=== PATIENT | female | born 1965 | race Caucasian/White ===

== ENCOUNTER → 2016-11-21 | Outpatient (CLI) | payer BC ==
--- OUTSIDE RECORDS SUMMARY | 2016-11-21 06:57 | XMS REPORT | Continuity of Care Document ---
Author Author [facility] Organization [facility] Address Unknown Phone Unavailable Allergies Medications Problems Date Dx Coded Attending Type Code Diagnosis Diagnosed By 10/29/2015 Ot Z12.31 11/21/2016 Ot V76.12 OTH SCREEN MAMMO-MALIGN NEOPLASM OF AVERY 11/21/2016 DUNIA SIMPSON, JAMISON Bonilla Ot 729.5 PAIN IN LIMB 11/21/2016 DUNIA SIMPSON, JAMISON Bonilla Ot E888.9 FALL NOS 11/21/2016 REMY SMART Ot V76.12 OTH SCREEN MAMMO-MALIGN NEOPLASM OF AVERY 11/21/2016 Ot Z12.31 ENCNTR SCREEN MAMMOGRAM FOR MALIGNANT NE Procedures Results Encounters ACCT No. Visit Date/Time Discharge Status Pt. Type Provider Facility Loc./Unit Complaint [id number] 06/19/2014 07:38:00 2013 23:59:59 CLS Outpatient REMY MSART [facility] RAD SCREENING [id number] 04/10/2013 15:24:00 2012 23:59:59 CLS Outpatient JAMISON DUQUE MD [facility] RAD PAIN,FALL [id number] 11/21/2016 06:54:00 ACT Outpatient YAQUELIN HUTTON APRN [facility] RAD SCREENING [id number] 10/14/2015 07:26:00 Document Registration [id number] 04/06/2012 07:32:00 Document Registration
--- NOTE | 2016-11-21 17:27 | Diagnostic Imaging Report ---
Bilateral screening mammogram. The current study was also evaluated with a Computer Aided Detection (CAD) system. INDICATION: Screening. No current complaints stated on the questionnaire. COMPARISON: 10/14/15. FINDINGS: The breasts are composed of scattered fibroglandular densities. No mass, architectural distortion or suspicious cluster of calcification is seen. Allowing for technique and positional differences, no suspicious change is seen. IMPRESSION: No significant change. ACR BI-RADS Category 2: Benign findings. Result letter will be mailed to the patient. Note: At least 10% of breast cancer is not imaged by mammography. Dictated by: Dictated on workstation # [id number]
== END ==
LOC: RAD 06:54
PROVIDERS: ATTEND Nurse Practitioner Family
DX: Z12.31 Encounter for screening mammogram for malignant neoplasm of breast (principal)
CPT/HCPCS: 77067

== ENCOUNTER → 2017-08-30 | Outpatient (CLI) | payer BC | LOC: LAB 13:31 | PROVIDERS: ATTEND Internal Medicine | DX: M79.662 Pain in left lower leg (principal); M79.89 Other specified soft tissue disorders | CPT/HCPCS: 36415; 85379 ==

== ENCOUNTER → 2018-01-16 | Outpatient (CLI) | payer BC ==
--- NOTE | 2018-01-19 14:46 | RADIOLOGY REPORT ---
NAME: JOSE CALHOUN [facility] REC#: [id number] PT STATUS: REG CLI : 1965 PHYSICIAN: YAQUELIN HUTTON APRN ADMIT DATE: 01/16/18/RAD CORRECTED Signed Date of Exam:01/16/18 MAMMO BILATERAL SCREENING Comparison: Prior exams of 11/21/2016, 10/14/2015 and 06/19/2014. At this time there are no current complaints. 3d digital tomography [bilateral] History: Routine screening Technique: Bilateral 3d digital tomographic [facility] and reviewed on a [id number] workstation. In addition, CAD - computer aided detection was utilized. Findings: Breast Tissue Density D : The breast tissue is predominantly dense. Scattered fibroglandular elements may obscure underlying pathology. There are no suspicious masses, microcalcifications or areas of architectural distortion. Impression: No suspicious findings. ACR BI-RADS Category 1: Negative. Result letter will be mailed to the patient. Note: At least 10% of breast cancer is not imaged by mammography. "Our facility is accredited by the [employer] Mammography Program." Dictated by: Dictated on workstation # [id number] Dict: 01/16/18 1135 Trans: 01/19/18 1059 [facility] [id number] Interpreted by: DANIEL PEREZ MD Electronically signed by: DANIEL PEREZ MD 01/19/18 1059 MTDD
== END ==
LOC: RAD 07:02
PROVIDERS: ATTEND Nurse Practitioner Family
DX: Z12.31 Encounter for screening mammogram for malignant neoplasm of breast (principal)
CPT/HCPCS: 77067

== ENCOUNTER → 2019-03-06 | Outpatient (CLI) | payer BC ==
--- NOTE | 2019-03-06 10:21 | Diagnostic Imaging Report ---
INDICATION: Bug bite to the right breast. COMPARISON: Correlation is made with prior mammograms from 01/16/2018 and 11/21/2016. TECHNIQUE: 2D and 3D bilateral diagnostic mammography was performed with CAD. FINDINGS: Scattered fibroglandular densities are identified bilaterally. A BB marker was placed at the area of bug bite in the inferior and slightly medial right breast. No underlying abnormality is seen. No mass or malignant appearing microcalcifications are seen. The axillae are unremarkable. IMPRESSION: No mammographic features suspicious for malignancy are identified. ACR BI-RADS Category 1: Negative. Result letter will be mailed to the patient. Note: At least 10% of breast cancer is not imaged by mammography. Dictated by: Dictated on workstation # [id number]
== END ==
LOC: RAD 07:39
PROVIDERS: ATTEND Nurse Practitioner Family
DX: S20.161A Insect bite (nonvenomous) of breast, right breast, initial encounter (principal)
CPT/HCPCS: 77066

== ENCOUNTER → 2020-10-06 | Outpatient (CLI) | payer BC | LOC: LABNPT 06:48 | PROVIDERS: ATTEND Internal Medicine | DX: Z20.822 Contact with and (suspected) exposure to COVID-19 (principal) | CPT/HCPCS: 87635 ==

== ENCOUNTER → 2020-12-22 | Outpatient (CLI) | payer BC ==
--- NOTE | 2020-12-22 09:01 | Diagnostic Imaging Report ---
EXAMINATION: CT head without contrast. TECHNIQUE: Multiple contiguous axial images were obtained through the brain without the use of intravenous contrast. All CT scans use one or more of the following dose optimizing techniques: automated exposure control, MA and/or KvP adjustment based on a patient size and exam type, or iterative reconstruction. HISTORY: Headache. Primarily frontal and right-sided. COMPARISON: None available. FINDINGS: No large acute territorial ischemia, mass, or hemorrhage. No midline shift or mass effect. The ventricles, cortical sulci, and basilar cisterns are patent and unremarkable. The orbits are normal. Paranasal sinuses are normal. Mastoid air cells are clear. No soft tissue abnormality is seen. No osseus lesions or fractures are seen. IMPRESSION: 1. No large acute territorial ischemia, mass, or hemorrhage. Dictated by: Dictated on workstation # [id number]
== END ==
LOC: RAD 08:15
PROVIDERS: ATTEND Internal Medicine
DX: R51.9 Headache, unspecified (principal)
CPT/HCPCS: 70450

== ENCOUNTER → 2022-10-28 | Outpatient (CLI) | payer BC ==
--- NOTE | 2022-10-28 11:34 | Diagnostic Imaging Report ---
PROCEDURE: US left lower extremity venous. TECHNIQUE: Multiple real-time grayscale images were obtained over the left lower extremity in various projections. Additional duplex Doppler and color Doppler images were also obtained. INDICATION: Left lower extremity edema COMPARISON: Non available. FINDINGS: The left common femoral, femoral and popliteal veins are patent by color doppler imaging and without DVT. Visualized proximal aspects of the greater saphenous, deep femoral, posterior tibial and peroneal veins are also patent. All of the evaluated deep venous structures demonstrate normal compressibility and waveform augmentation where applicable. IMPRESSION: No left lower extremity deep venous thrombosis (DVT). Dictated by: Dictated on workstation # [id number]
== END ==
LOC: RAD 10:13
PROVIDERS: ATTEND Nurse Practitioner Family
DX: R60.0 Localized edema (principal)